=== PATIENT | male | born 1975 | race African-American/Black ===

== ENCOUNTER 2017-09-29 05:24 | Emergency (ER) | payer SELFPAY ==
[2017-09-29 06:40] LABS: BASOPHILS 0.3 % (0-2); EOSINOPHILS 2.5 % (0-7); HEMATOCRIT 39.6 % (42.0-54.0); HEMOGLOBIN 13.4 g/dL (13.5-17.5); IMMATURE GRANULOCYTES 0.1 % (0-5); LYMPHOCYTES 15.9 % (15-50); MCH 30.7 pg (26.0-34.0); MCHC 33.8 g/dL (31.0-37.0); MCV 90.6 fL (80.0-100.0); MEAN PLATELET VOLUME 9.4 fL (7.4-10.4); MONOCYTES 11.1 % (2-11); NEUTROPHILS 70.1 % (40-80); RBC 4.37 10x6/uL (4.20-6.10); RDW 13.7 % (11.5-14.5); WBC 6.9 10x3/uL (4.8-10.8)
[2017-09-29 06:45] LABS: PLATELET COUNT 258 10x3/uL (130-400)
[2017-09-29 07:10] LABS: ALBUMIN 3.3 g/dL (3.4-5.0); BILIRUBIN - TOTAL 0.4 mg/dL (0.2-1.3); CALCIUM 8.9 mg/dL (8.5-10.1); CARBON DIOXIDE 26.9 mmol/L (21.0-32.0); CREATININE - SERUM 1.3 mg/dL (0.6-1.3); POTASSIUM - SERUM 3.9 mmol/L (3.5-5.1); PROTEIN - SERUM 7.4 g/dL (6.4-8.2)
[2017-09-29 07:11] LABS: C-REACTIVE PROTEIN 1.5 mg/dL (0.0-0.9); URIC ACID 6.6 mg/dL (2.6-7.2)
== END 2017-09-29 07:40 | disposition home or self-care (01) ==
LOC: D.ER 05:24
PROVIDERS: Family Medicine
DX: L03.116 Cellulitis of left lower limb (principal)

== ENCOUNTER 2017-12-27 07:22 | Emergency (ER) | payer SELFPAY ==
[~2017-12-27] VITALS: Ht 190.5 cm; Wt 131.8 kg
[2017-12-27 07:32] VITALS: Ht 190.5 cm; Wt 131.8 kg
[2017-12-27] MEDS ORDERED: IBUPROFEN800 MG PO (07:53)
[2017-12-27] MEDS ORDERED: ACETAMINOPHEN500 M1 PO (07:53)
[2017-12-27] MEDS ORDERED: CYCLOBENZAPRINE10 MG PO (07:53)
[2017-12-27 08:30] VITALS: BP 137/89
== END 2017-12-27 08:31 | disposition home or self-care (01) ==
LOC: D.ER 07:22
DX: M79.1 Myalgia (principal); M54.5 Low back pain; M62.830 Muscle spasm of back